=== PATIENT | female | born 1945 | race Caucasian/White ===

== ENCOUNTER 2018-06-01 10:13 | Outpatient (CLI) | payer MEDICARE | END 2018-06-01 10:14 | disposition home or self-care (01) | LOC: BICMAMMO 10:13 | PROVIDERS: ATTEND Family Medicine | DX: Z12.31 Encounter for screening mammogram for malignant neoplasm of breast (principal); N64.89 Other specified disorders of breast; N63.10 Unspecified lump in the right breast, unspecified quadrant; Z85.3 Personal history of malignant neoplasm of breast | CPT/HCPCS: 76642; 77063; 77065; 77067; G0279 ==

== ENCOUNTER 2019-01-21 07:27 | Outpatient (CLI) | payer MEDICARE, OTHER ==
--- NOTE | 2019-01-21 15:57 | NM ---
NUCLEAR MEDICINE TAGGED LEUKOCYTE SCAN: DATE: 01/21/2019. HISTORY: A 73-year-old female status post left shoulder surgery in May 2018, with a history of infection in t hat location. T84.099A, other mechanical complication of unspecified internal joint prosthesis, initial encounte r. TECHNIQUE: IV injection of 11.3 mCi of Technetium 99m-tagged WBCs. Whole body scintigraphy in anterior and posterior views. FINDINGS: There is normal uptake of tagged leukocytes in the liver and spleen. There is no abnormal collection of the radiopharmaceutical elsewhere, including the shoulders. There is a scoliosis of the thoracic spine. IMPRESSION: 1. No evidence of infection in the shoulder or elsewhere. 2. Scoliosis of thoracic spine. POS: TPC
== END 2019-01-21 07:28 | disposition home or self-care (01) ==
LOC: NM 07:27
PROVIDERS: ATTEND Internal Medicine Infectious Disease
DX: T84.099A Other mechanical complication of unspecified internal joint prosthesis, initial encounter (principal); M41.9 Scoliosis, unspecified
CPT/HCPCS: 78806; A4641; A9521

== ENCOUNTER 2019-06-10 11:11 | Outpatient (CLI) | payer MEDICARE ==
--- NOTE | 2019-06-10 11:55 | MMO ---
Bilateral MAMMO Bilat Screen [facility]. CLINICAL HISTORY: Patient is 74 years old and is seen for screening. The patient has no family history of breast cancer. The patient has a history of left Mastectomy in November, - malignant and right Stereotatic Biopsy in April 30 and 2011 - benign. VIEWS: The views performed were: right craniocaudal with tomosynthesis and right mediolateral oblique with tomosynthesis. FILMS COMPARED: The present examination has been compared to prior imaging studies performed at [facility] on 11/26/2015, 11/27/2016 and 06/01/2018. MAMMOGRAM FINDINGS: The breast is heterogeneously dense, which could obscure a lesion on mammography. There are no suspicious masses, calcifications or areas of architectural distortion. There are benign appearing calcifications in the right breast. There are no suspicious masses, suspicious calcifications, or new areas of architectural distortion. IMPRESSION: THERE IS NO MAMMOGRAPHIC EVIDENCE OF MALIGNANCY. A ROUTINE FOLLOW-UP MAMMOGRAM IN 1 YEAR IS RECOMMENDED. THE RESULTS OF THIS EXAM WERE SENT TO THE PATIENT. ACR BI-RADS Category 2 - Benign finding MAMMOGRAPHY NOTE: 1. A negative mammogram report should not delay a biopsy if a dominant of clinically suspicious mass is present. 2. Approximately 10% to 15% of breast cancers are not detected by mammography. 3. Adenosis and dense breasts may obscure an underlying neoplasm. Reported by: ELIZABETH QUESADA MD Electonically Signed: [id number]
== END 2019-06-10 11:12 | disposition home or self-care (01) ==
LOC: BICMAMMO 11:11
PROVIDERS: ATTEND Family Medicine
DX: Z12.31 Encounter for screening mammogram for malignant neoplasm of breast (principal); Z80.3 Family history of malignant neoplasm of breast
CPT/HCPCS: 77063; 77067

== ENCOUNTER 2020-03-02 12:39 | Outpatient (CLI) | payer MEDICARE ==
--- NOTE | 2020-03-02 13:56 | RAD ---
CHEST 2 VIEWS: HISTORY: Chronic cough, cough for 2 weeks. FINDINGS: Bilateral shoulder replacement changes. Scoliotic changes of the thoracolumbar vertebral column and thoracic spine. Heart size is within normal limits. Evidence for small old granulomas in the right lower lobe. No confluent pneumonia, overt edema, or pleural effusion. IMPRESSION: No significant acute intrathoracic disease. No evidence for pneumonia. Old granulomatous disease. Atherosclerotic ectatic changes of the aorta. POS: RRE
== END 2020-03-02 12:40 | disposition home or self-care (01) ==
LOC: BICRAD 12:39
PROVIDERS: ATTEND Family Medicine
DX: R05 Cough (principal); I70.0 Atherosclerosis of aorta; D71 Functional disorders of polymorphonuclear neutrophils
CPT/HCPCS: 71046

== ENCOUNTER 2020-03-12 08:56 | Outpatient (CLI) | payer MEDICARE ==
--- NOTE | 2020-03-12 09:59 | MRI ---
Exam: Brain MRI without contrast HISTORY: Transient neurological symptoms. Patient has been sleep walking and passed out last week COMPARISON: None FINDINGS: Calvarial marrow signal intensity: Appropriate T1 signal Gradient echo sequence: No hemorrhage Brain parenchyma: No mass, mass effect or midline shift. Brain volume, age-appropriate. Cortical cruz-white matter differentiation: Preserved Restricted diffusion: Central arterial flow voids are maintained. Absent restricted diffusion White matter signal intensities:Scattered T2, FLAIR white matter hyperintensities due to chronic smal l vessel ischemic changes Sinuses: Adequate aeration of the paranasal sinuses and mastoid air cells. IMPRESSION: 1. No acute intracranial process. 2. Absent restricted. No evidence of infarct.
== END 2020-03-12 08:57 | disposition home or self-care (01) ==
LOC: BICMRI 08:56
PROVIDERS: ATTEND Family Medicine
DX: R29.818 Other symptoms and signs involving the nervous system (principal)
CPT/HCPCS: 70551

== ENCOUNTER 2020-06-12 14:11 | Outpatient (CLI) | payer MEDICARE ==
--- NOTE | 2020-06-12 16:56 | EEG ---
DATE OF SERVICE: 06/12/2020 ATTENDING PHYSICIAN: Janet Anne MD. This EEG was performed using 24-channel [employer] video digital EEG machine with 24-disk electrodes. This was a routine EEG recording. BACKGROUND: There is a nonsustained posterior background rhythm of 8 Hz. Minimal reactivity seen with eye opening and closure. HYPERVENTILATION: No significant response seen with hyperventilation. PHOTIC STIMULATION: Bioccipital symmetric driving responses observed. SLEEP: Drowsiness observed. EEG DIAGNOSES: Nonsustained posterior background rhythm. CLINICAL INTERPRETATION: This EEG is consistent with mild generalized nonspecific cerebral dysfunction. No ictal or interictal epileptiform abnormalities seen during the recording. Job ID: [id number]
== END 2020-06-12 14:12 | disposition home or self-care (01) ==
LOC: EEG 14:11
PROVIDERS: ATTEND Psychiatry & Neurology Neurology
DX: G93.40 Encephalopathy, unspecified (principal); R94.01 Abnormal electroencephalogram [EEG]
CPT/HCPCS: 95816

== ENCOUNTER 2020-06-20 13:28 | Outpatient (CLI) | payer MEDICARE ==
--- NOTE | 2020-06-20 14:58 | MMO ---
Bilateral MAMMO Bilat Screen [facility]. CLINICAL HISTORY: Patient is 75 years old and is seen for screening. The patient has no family history of breast cancer. The patient has a history of left Mastectomy in November, - malignant and right Stereotatic Biopsy in April 30 and 2011 - benign. VIEWS: The views performed were: bilateral craniocaudal with tomosynthesis and bilateral mediolateral oblique with tomosynthesis. FILMS COMPARED: The present examination has been compared to prior imaging studies performed at [facility] on 11/27/2016, 06/01/2018 and 06/10/2019. This study has been interpreted with the assistance of computer-aided detection. MAMMOGRAM FINDINGS: The breast is heterogeneously dense, which could obscure a lesion on mammography. Benign calcifications are noted bilaterally. There are no suspicious masses, suspicious calcifications, or new areas of architectural distortion. IMPRESSION: THERE IS NO MAMMOGRAPHIC EVIDENCE OF MALIGNANCY. A ROUTINE FOLLOW-UP MAMMOGRAM IN 1 YEAR IS RECOMMENDED. THE RESULTS OF THIS EXAM WERE SENT TO THE PATIENT. ACR BI-RADS Category 2 - Benign finding MAMMOGRAPHY NOTE: 1. A negative mammogram report should not delay a biopsy if a dominant of clinically suspicious mass is present. 2. Approximately 10% to 15% of breast cancers are not detected by mammography. 3. Adenosis and dense breasts may obscure an underlying neoplasm. Reported by: MOHAN COSTA MD Electonically Signed: [id number]
== END 2020-06-20 13:29 | disposition home or self-care (01) ==
LOC: BICMAMMO 13:28
PROVIDERS: ATTEND Family Medicine
DX: Z12.31 Encounter for screening mammogram for malignant neoplasm of breast (principal); Z90.12 Acquired absence of left breast and nipple; Z85.3 Personal history of malignant neoplasm of breast
CPT/HCPCS: 77063; 77067

== ENCOUNTER 2020-08-07 14:35 | Outpatient (CLI) | payer MEDICARE ==
--- NOTE | 2020-08-07 15:20 | BD ---
EXAM: DEXA bone density examination HISTORY: History of hip replacement, osteoporosis screening COMPARISON: None FINDINGS: L1--bone mineral density 0.906 g/sq cm; T score -0.8. Z score 1.4 L2--bone mineral density 1.019 g/sq cm; T score -0.1; Z score 2.4 L3--bone mineral density 1.028 g/sq cm; T score -0.5; Z score 2.1 L4--bone mineral density 1.156 g/sq cm; T score 0.9, Z score 3.5 Total L1-L4--bone mineral density 1.028 g/sq cm; T score -0.2, Z score 2.3 Left forearm proximal one third-- bone mineral density 0.445; T score -4.1, Z score -1.4 Mid forearm-- bone mineral density 0.473; T score -2.5, Z score 0.2 Ulnar distal--bone mineral density 0.346; T score -1.7; Z score 0.3 IMPRESSION: Based on the WHO criteria, the patient's bone mineral density is consideredOsteoporotic. The patient is at high risk for fracture.
== END 2020-08-07 14:36 | disposition home or self-care (01) ==
LOC: BICMAMMO 14:35
PROVIDERS: ATTEND Nurse Practitioner Family
DX: Z13.828 Encounter for screening for other musculoskeletal disorder (principal); M85.80 Other specified disorders of bone density and structure, unspecified site; M81.0 Age-related osteoporosis without current pathological fracture
CPT/HCPCS: 77080

== ENCOUNTER 2020-09-30 19:00 | Outpatient (CLI) | payer MEDICARE | END 2020-09-30 19:01 | disposition home or self-care (01) | LOC: SLEEPLAB 19:00 | PROVIDERS: ATTEND Family Medicine | DX: G47.33 Obstructive sleep apnea (adult) (pediatric) (principal); G47.59 Other parasomnia; G47.00 Insomnia, unspecified; G47.10 Hypersomnia, unspecified; I48.91 Unspecified atrial fibrillation; R06.83 Snoring; I10 Essential (primary) hypertension; G47.61 Periodic limb movement disorder | CPT/HCPCS: 95810 ==

== ENCOUNTER 2020-12-16 19:00 | Outpatient (CLI) | payer MEDICARE | END 2020-12-16 19:01 | disposition home or self-care (01) | LOC: SLEEPLAB 19:00 | PROVIDERS: ATTEND Family Medicine | DX: G47.33 Obstructive sleep apnea (adult) (pediatric) (principal); G47.50 Parasomnia, unspecified; G47.10 Hypersomnia, unspecified; E66.9 Obesity, unspecified; G47.61 Periodic limb movement disorder; Z68.21 Body mass index [BMI] 21.0-21.9, adult | CPT/HCPCS: 95811 ==